=== PATIENT | female | born 1955 | race Caucasian/White ===

== ENCOUNTER 2018-03-28 20:16 | Observation (INO) ==
[2018-03-28] MEDS ORDERED: Sod Chloride 0.9% Inj 1,000 ML IV.SIG ONE (20:32)
--- NOTE | 2018-03-28 20:33 | ED ---
HPI General Chief complaint: Dizziness Stated complaint: cold symp Time Seen by Provider: 03/28/18 20:25 Source: patient Mode of arrival: wheelchair Limitations: no limitations History of Present Illness HPI narrative: 62-year-old female with history of hypertension, gastric bypass, presents emergency department for evaluation of acute onset nausea and vomiting 1 and half hours prior to arrival. Patient thought initially it was because she had had cereal with sugar. This sometimes does cause her stomach to be upset but typically resolves after she vomits. She states it did not and she has vomited several times. She denies any chest pain. Patient states she feels weak. She is diaphoretic. She denies any cardiac history. She states she has otherwise been well. Related Data Home Medications Medication Instructions Recorded Confirmed Bariatric Procare Vitamin 1 tab PO DAILY NEB 03/28/18 03/28/18 Multi Vitamin 1 tab PO DAILY 03/28/18 03/28/18 benazepril-hydrochlorothiazide 1 tab PO DAILY 03/28/18 03/29/18 bupropion HCl [Wellbutrin SR] 150 mg PO BID 03/28/18 03/28/18 clonazepam 1 tab PO BID 03/28/18 03/28/18 Previous Rx's Medication Instructions Recorded potassium chloride 20 meq PO BID #14 tab 03/29/18 Allergies Allergy/AdvReac Type Severity Reaction Status Date / Time Sulfa (Sulfonamide Allergy Intermediate Itching, Verified 03/28/18 22:10 Antibiotics) Generalized doxycycline Allergy Dizziness Verified 03/28/18 22:09 morphine Allergy Itching, Verified 03/28/18 20:25 Generalized Review of Systems ROS: all other systems reviewed are negative PMFSH History History Provided By: Patient Medical History Medical History Anxiety (Acute) Depression (Acute) HTN (hypertension) (Acute) Hx of hysterectomy (Acute) Surgical History Surgical History Hx of LASIK (Acute) Hx of gastric bypass (Acute) Social History Social History Substance History: No History of Abuse Second Hand Smoke Exposure: No Smoking Status: Former smoker Tobacco Type: Cigarettes How Often Do You Have a Drink Containing Alcohol: 2 to 3 times a week Recent Travel in [facility] within the Last 8 Weeks: No Recent Out of Country Travel within the Last 8 Weeks: No Exam Narrative Exam Narrative: GENERAL: Well-nourished female patient, appears as though she does not feel well, in no acute distress. SKIN: Focused skin assessment. Cool and clammy, diaphoretic HEAD: Atraumatic. Normocephalic. EYES: Pupils equal and round. No scleral icterus. No injection or drainage. ENT: No nasal bleeding or discharge. Mucous membranes pink and moist. NECK: Trachea midline. No JVD. CARDIOVASCULAR: Regular rate and rhythm. No murmur appreciated. RESPIRATORY: No accessory muscle use. Clear to auscultation. Breath sounds equal bilaterally. GASTROINTESTINAL: Abdomen soft, non-tender, nondistended. No guarding. No rebound tenderness. Hepatic and splenic margins not palpable. MUSCULOSKELETAL: No obvious deformities. No clubbing. No cyanosis. No edema. NEUROLOGICAL: Awake and alert. No obvious cranial nerve deficits. Motor grossly within normal limits. Normal speech. PSYCHIATRIC: Appropriate mood and affect; insight and judgment normal. Course Initial Documented Vital Signs Temperature 97.9 F 03/28/18 20:21 Pulse Rate 85 03/28/18 20:21 Respiratory Rate 20 03/28/18 20:21 Blood Pressure 124/71 03/28/18 20:21 Pulse Oximetry 100 03/28/18 20:21 Last Documented Vital Signs Temperature 97.5 F L 03/29/18 08:00 Pulse Rate 73 03/29/18 09:12 Respiratory Rate 22 03/29/18 08:00 Blood Pressure 155/76 H 03/29/18 09:15 Pulse Oximetry 100 03/29/18 08:00 Medical Decision Making OSBALDO Attestation OSBALDO supervised visit: Yes Attestation: I, Dr. Rivera, have reviewed the advance practice practitioner's documentation and am in agreement, met with the patient face to face, made the diagnosis, and the medical decision making was done by me. The patient was initially evaluated by Kellie, the [employer]. Please see their complete history and physical. *My assessment and Findings: The patient presents with nausea, vomiting, midepigastric pain, diaphoresis that began after eating. She reports a history of gastric bypass with similar symptoms in the past, however it usually resolves quickly, this persisted thus prompting her to go to the emergency department. The patient denies any prior history of coronary artery disease. During the course of the patient's emergency department visit, the patient's history, examination, and differential diagnosis were reviewed with the patient. The patient was placed on a alarm security or surveillance monitor with oximetry and frequent blood pressure monitoring. The patient had IV access obtained and blood work sent for analysis. The patient's studies were reviewed and remarkable for a white count of 6.3, platelets 255, monocytosis at 9.5, hemoglobin 13.6, PT PTT unremarkable, chemistry reveals a troponin I of <0.02, sodium is 130, lipase is 60. Urinalysis shows small occult blood few mucus, culture not indicated RBCs 1 on high-powered field. Chest x-ray shows no acute abnormality. Given the patient's symptoms and comorbid risk factors for coronary artery disease, the patient was agreeable with the plan to proceed with admission to the chest pain center for rule out serial cardiac enzyme protocol followed by consideration of stress testing. The patient's results were discussed with the patient, including the plan of care. I explained that further testing and/ or monitoring is indicated based on the patient's history, examination, and/ or laboratory findings. Therefore, I recommended admission for additional evaluation. The patient expressed understanding and was agreeable with this plan. The patient was admitted to the hospital in stable condition and sent to a bed under the care of the [facility] Narrative Medical decision making narrative: C2-year-old female presents emergency department for evaluation. Patient appears initially so she does not feel well. She is nauseous. She is vomiting. She is given Zofran. Initial blood glucose is 61. Patient is able to tolerate p.o. Lab work is reviewed and without acute concern. Troponin is less than 0.02. EKG is reviewed by my attending upon reassessment, patient does appear better. She tells me that she feels much better and would like to go home. I discussed with my attending physician. Because these are symptoms not consistent with her previous episodes of hypoglycemia or eating sugary cereal, we both agree it is in her best interest to be admitted observation with chest pain center to rule out any possible cardiac etiology. I have explained this again to the patient and she is in agreement with this plan of care. Lab Data Result diagrams: 03/28/18 20:45 03/29/18 03:18 Lab Results 03/28/18 03/28/18 03/28/18 Range/Units 20:45 20:45 20:45 WBC 6.3 (4.0-11.0) th/mm3 RBC 4.32 (4.00-5.30) mil/mm3 Hgb 13.6 (11.6-15.3) gm/dL Hct 38.2 (35.0-46.0) % MCV 88.3 (80.0-100.0) fL MCH 31.4 (27.0-34.0) pg MCHC 35.5 (32.0-36.0) % RDW 13.3 (11.6-17.2) % Plt Count 255 (150-450) th/mm3 MPV 8.1 (7.0-11.0) fL Neut % (Auto) 55.5 (16.0-70.0) % Lymph % (Auto) 32.3 (9.0-44.0) % Dolores % (Auto) 9.9 H (0.0-8.0) % Eos % (Auto) 1.8 (0.0-4.0) % Baso % (Auto) 0.5 (0.0-2.0) % Neut # (Auto) 3.5 (1.8-7.7) th/mm3 Lymph # (Auto) 2.0 (1.0-4.8) th/mm3 Dolores # (Auto) 0.6 (0.0-0.9) th/mm3 Eos # (Auto) 0.1 (0.0-0.4) th/mm3 Baso # (Auto) 0.0 (0.0-0.2) th/mm3 WBC Differential . Differential Comment Auto diff final PT 9.8 (9.8-11.6) sec INR 1.0 Ratio APTT 26.5 (24.3-30.1) sec Sodium (136-145) meq/L Potassium (3.5-5.1) meq/L Chloride (98-107) meq/L Carbon Dioxide (21.0-32.0) meq/L Anion Gap (5-15) meq/L BUN (7-18) mg/dL Creatinine (0.50-1.00) mg/dL Estimated GFR (>89) mL/min POC Glucose (68-110) mg/dl Random Glucose (74-106) mg/dL Calcium (8.5-10.1) mg/dL Total Bilirubin (0.2-1.0) mg/dL AST (15-37) U/L ALT (10-53) U/L Alkaline Phosphatase (45-117) U/L Total Creatine Kinase (26-192) U/L Troponin I (0.02-0.05) ng/mL Total Protein (6.4-8.2) g/dL Albumin (3.4-5.0) g/dL Lipase (73-393) U/L Urine Color (Yellw/Straw) Urine Clarity (Clear) Urine pH (5.0-8.5) Ur Specific Cary (1.002-1.035) Urine Protein (Neg-Trace) mg/dL Urine Glucose (UA) (Negative) mg/dL Urine Ketones (Negative) mg/dL Urine Occult Blood (Negative) Urine Nitrate (Negative) Urine Bilirubin (Negative) Urine Urobilinogen (Less than 2) mg/dL Ur Leukocyte Esterase (Negative) Urine RBC (0-3) /hpf Urine Mucus (Occasional) /lpf Micro UA Comment Urine Culture Comments Serum Alcohol 49 H (0-5) mg/dL 03/28/18 03/28/18 03/28/18 Range/Units 20:45 20:58 22:03 WBC (4.0-11.0) th/mm3 RBC (4.00-5.30) mil/mm3 Hgb (11.6-15.3) gm/dL Hct (35.0-46.0) % MCV (80.0-100.0) fL MCH (27.0-34.0) pg MCHC (32.0-36.0) % RDW (11.6-17.2) % Plt Count (150-450) th/mm3 MPV (7.0-11.0) fL Neut % (Auto) (16.0-70.0) % Lymph % (Auto) (9.0-44.0) % Dolores % (Auto) (0.0-8.0) % Eos % (Auto) (0.0-4.0) % Baso % (Auto) (0.0-2.0) % Neut # (Auto) (1.8-7.7) th/mm3 Lymph # (Auto) (1.0-4.8) th/mm3 Dolores # (Auto) (0.0-0.9) th/mm3 Eos # (Auto) (0.0-0.4) th/mm3 Baso # (Auto) (0.0-0.2) th/mm3 WBC Differential Differential Comment PT (9.8-11.6) sec INR Ratio APTT (24.3-30.1) sec Sodium 130 L (136-145) meq/L Potassium 2.7 L* (3.5-5.1) meq/L Chloride 92 L (98-107) meq/L Carbon Dioxide 26.2 (21.0-32.0) meq/L Anion Gap 12 (5-15) meq/L BUN 11 (7-18) mg/dL Creatinine 0.67 (0.50-1.00) mg/dL Estimated GFR 89 (>89) mL/min POC Glucose 61 L 101 (68-110) mg/dl Random Glucose 54 L (74-106) mg/dL Calcium 8.8 (8.5-10.1) mg/dL Total Bilirubin 0.3 (0.2-1.0) mg/dL AST 25 (15-37) U/L ALT 25 (10-53) U/L Alkaline Phosphatase 91 (45-117) U/L Total Creatine Kinase 80 (26-192) U/L Troponin I Less than 0.02 L (0.02-0.05) ng/mL Total Protein 6.7 (6.4-8.2) g/dL Albumin 4.0 (3.4-5.0) g/dL Lipase 60 L (73-393) U/L Urine Color (Yellw/Straw) Urine Clarity (Clear) Urine pH (5.0-8.5) Ur Specific Cary (1.002-1.035) Urine Protein (Neg-Trace) mg/dL Urine Glucose (UA) (Negative) mg/dL Urine Ketones (Negative) mg/dL Urine Occult Blood (Negative) Urine Nitrate (Negative) Urine Bilirubin (Negative) Urine Urobilinogen (Less than 2) mg/dL Ur Leukocyte Esterase (Negative) Urine RBC (0-3) /hpf Urine Mucus (Occasional) /lpf Micro UA Comment Urine Culture Comments Serum Alcohol (0-5) mg/dL 03/28/18 03/29/18 03/29/18 Range/Units 22:10 00:30 03:18 WBC (4.0-11.0) th/mm3 RBC (4.00-5.30) mil/mm3 Hgb (11.6-15.3) gm/dL Hct (35.0-46.0) % MCV (80.0-100.0) fL MCH (27.0-34.0) pg MCHC (32.0-36.0) % RDW (11.6-17.2) % Plt Count (150-450) th/mm3 MPV (7.0-11.0) fL Neut % (Auto) (16.0-70.0) % Lymph % (Auto) (9.0-44.0) % Dolores % (Auto) (0.0-8.0) % Eos % (Auto) (0.0-4.0) % Baso % (Auto) (0.0-2.0) % Neut # (Auto) (1.8-7.7) th/mm3 Lymph # (Auto) (1.0-4.8) th/mm3 Dolores # (Auto) (0.0-0.9) th/mm3 Eos # (Auto) (0.0-0.4) th/mm3 Baso # (Auto) (0.0-0.2) th/mm3 WBC Differential Differential Comment PT (9.8-11.6) sec INR Ratio APTT (24.3-30.1) sec Sodium (136-145) meq/L Potassium (3.5-5.1) meq/L Chloride (98-107) meq/L Carbon Dioxide (21.0-32.0) meq/L Anion Gap (5-15) meq/L BUN (7-18) mg/dL Creatinine (0.50-1.00) mg/dL Estimated GFR (>89) mL/min POC Glucose (68-110) mg/dl Random Glucose (74-106) mg/dL Calcium (8.5-10.1) mg/dL Total Bilirubin (0.2-1.0) mg/dL AST (15-37) U/L ALT (10-53) U/L Alkaline Phosphatase (45-117) U/L Total Creatine Kinase 67 64 (26-192) U/L Troponin I Less than 0.02 L Less than 0.02 L (0.02-0.05) ng/mL Total Protein (6.4-8.2) g/dL Albumin (3.4-5.0) g/dL Lipase (73-393) U/L Urine Color Straw (Yellw/Straw) Urine Clarity Clear (Clear) Urine pH 7.0 (5.0-8.5) Ur Specific Cary 1.005 (1.002-1.035) Urine Protein Negative (Neg-Trace) mg/dL Urine Glucose (UA) Negative (Negative) mg/dL Urine Ketones Negative (Negative) mg/dL Urine Occult Blood Small H (Negative) Urine Nitrate Negative (Negative) Urine Bilirubin Negative (Negative) Urine Urobilinogen Less than 2 (Less than 2) mg/dL Ur Leukocyte Esterase Negative (Negative) Urine RBC 1 (0-3) /hpf Urine Mucus Few H (Occasional) /lpf Micro UA Comment Culture not ind Urine Culture Comments Culture not ind Serum Alcohol (0-5) mg/dL 03/29/18 Range/Units 03:18 WBC (4.0-11.0) th/mm3 RBC (4.00-5.30) mil/mm3 Hgb (11.6-15.3) gm/dL Hct (35.0-46.0) % MCV (80.0-100.0) fL MCH (27.0-34.0) pg MCHC (32.0-36.0) % RDW (11.6-17.2) % Plt Count (150-450) th/mm3 MPV (7.0-11.0) fL Neut % (Auto) (16.0-70.0) % Lymph % (Auto) (9.0-44.0) % Dolores % (Auto) (0.0-8.0) % Eos % (Auto) (0.0-4.0) % Baso % (Auto) (0.0-2.0) % Neut # (Auto) (1.8-7.7) th/mm3 Lymph # (Auto) (1.0-4.8) th/mm3 Dolores # (Auto) (0.0-0.9) th/mm3 Eos # (Auto) (0.0-0.4) th/mm3 Baso # (Auto) (0.0-0.2) th/mm3 WBC Differential Differential Comment PT (9.8-11.6) sec INR Ratio APTT (24.3-30.1) sec Sodium 134 L (136-145) meq/L Potassium 4.3 D (3.5-5.1) meq/L Chloride 100 D (98-107) meq/L Carbon Dioxide 24.1 (21.0-32.0) meq/L Anion Gap 10 (5-15) meq/L BUN 9 (7-18) mg/dL Creatinine 0.50 (0.50-1.00) mg/dL Estimated GFR Greater than 89 (>89) mL/min POC Glucose (68-110) mg/dl Random Glucose 102 (74-106) mg/dL Calcium 8.6 (8.5-10.1) mg/dL Total Bilirubin 0.3 (0.2-1.0) mg/dL AST 18 (15-37) U/L ALT 23 (10-53) U/L Alkaline Phosphatase 67 (45-117) U/L Total Creatine Kinase (26-192) U/L Troponin I (0.02-0.05) ng/mL Total Protein 6.2 L (6.4-8.2) g/dL Albumin 3.9 (3.4-5.0) g/dL Lipase (73-393) U/L Urine Color (Yellw/Straw) Urine Clarity (Clear) Urine pH (5.0-8.5) Ur Specific Cary (1.002-1.035) Urine Protein (Neg-Trace) mg/dL Urine Glucose (UA) (Negative) mg/dL Urine Ketones (Negative) mg/dL Urine Occult Blood (Negative) Urine Nitrate (Negative) Urine Bilirubin (Negative) Urine Urobilinogen (Less than 2) mg/dL Ur Leukocyte Esterase (Negative) Urine RBC (0-3) /hpf Urine Mucus (Occasional) /lpf Micro UA Comment Urine Culture Comments Serum Alcohol (0-5) mg/dL Imaging Data Radiologist's impression: Chest X-Ray 03/28/18 20:31 CONCLUSION: Negative examination. Discharge Plan Discharge Disposition Patient Disposition: 30 Still Patient Discharge Condition Condition: Stable Discharge Order Discharge Orders: Discharge Order (Routine); Ordered 03/29/18 Ordered By: Susan Stewart Discharge Details Anticipated Discharge Date: 03/29/18 Diagnosis: Atypical chest pain, Hypoglycemia, Nausea & vomiting Physicians Team ED Provider: Veena Rivera ED Midlevel Provider: Winsome Guzman Primary Care Provider: Ericka De Leon Attending Provider: Donato Irwin Other Providers: [facility],Insurance Status ED Status: Left Department Discharge Information Discharge Date/Time: 03/29/18 00:15
--- NOTE | 2018-03-28 21:16 | XR ---
EXAM DATE: 03/28/2018 9:13 PM EDT AGE/SEX: 62 years / Female INDICATIONS: Chest pain and nausea CLINICAL DATA: This is the patient's initial encounter. Patient reports that signs and symptoms have been present for 1 day and indicates a pain score of 8/10. MEDICAL/SURGICAL HISTORY: None. None. COMPARISON: No prior exams available for comparison. FINDINGS: A single AP view of the chest demonstrates the lungs to be symmetrically aerated without evidence of mass, infiltrate or effusion. The cardiomediastinal contours are unremarkable. Osseous structures a re intact. CONCLUSION: Negative examination. Electronically signed by: Odin Clemente MD 03/28/2018 9:15 PM EDT
[2018-03-28 21:41] LABS: Baso % (Auto) 0.5 % (0.0-2.0); Eos # (Auto) 0.1 th/mm3 (0.0-0.4); Eos % (Auto) 1.8 % (0.0-4.0); Hematocrit 38.2 % (35.0-46.0); Hemoglobin 13.6 gm/dL (11.6-15.3); Lymph % (Auto) 32.3 % (9.0-44.0); Mean Corpuscular HGB Conc 35.5 % (32.0-36.0); Mean Corpuscular Hemoglobin 31.4 pg (27.0-34.0); Mean Corpuscular Volume 88.3 fL (80.0-100.0); Mean Platelet Volume 8.1 fL (7.0-11.0); Mono # (Auto) 0.6 th/mm3 (0.0-0.9); Mono % (Auto) 9.9 % (0.0-8.0); Neut # (Auto) 3.5 th/mm3 (1.8-7.7); Neut % (Auto) 55.5 % (16.0-70.0); Platelet Count 255 th/mm3 (150-450); Red Blood Count 4.32 mil/mm3 (4.00-5.30); Red Cell Distribution Width 13.3 % (11.6-17.2); White Blood Count 6.3 th/mm3 (4.0-11.0)
[2018-03-28 21:47] LABS: Activated Partial Thrombo Time 26.5 sec (24.3-30.1); Prothrombin Time 9.8 sec (9.8-11.6)
[2018-03-28 21:52] LABS: Alanine Aminotransferase 25 U/L (10-53); Anion Gap 12 meq/L (5-15); Aspartate Aminotransferase 25 U/L (15-37); Blood Urea Nitrogen 11 mg/dL (7-18); Calcium 8.8 mg/dL (8.5-10.1); Carbon Dioxide 26.2 meq/L (21.0-32.0); Chloride 92 meq/L (98-107); Glomerular Filtration Rate 89 mL/min (>89); Glucose,Random 54 mg/dL (74-106); Lipase 60 U/L (73-393); Sodium 130 meq/L (136-145)
[2018-03-28 22:20] LABS: Alkaline Phosphatase 91 U/L (45-117); Total Protein 6.7 g/dL (6.4-8.2)
[2018-03-28 22:21] LABS: Creatine Kinase 80 U/L (26-192); Potassium 2.7 meq/L (3.5-5.1)
[2018-03-28 22:28] LABS: Bilirubin,Urine Negative (Negative); Clarity,Urine Clear (Clear); Color,Urine Straw (Yellw/Straw); Glucose,Urine (UA) Negative (Negative); Leukocyte Esterase,Urine Negative (Negative); Mucus,Urine Few /lpf (Occasional); Nitrite,Urine Negative (Negative); Specific Gravity,Urine 1.005 (1.002-1.035)
[2018-03-28] MEDS ORDERED: Acetaminophen 500 MG Tablet PO PRN (22:56)
[2018-03-29 01:10] LABS: Creatine Kinase 67 U/L (26-192)
[2018-03-29 03:59] LABS: Creatine Kinase 64 U/L (26-192)
--- NOTE | 2018-03-29 07:44 | P.HPCA ---
History of Present Illness Primary Care Physician: Ericka De Leon MD, R2 Chief Complaint: Nausea and vomiting History of Present Illness: 62 year old female with history of hypertension and gastric bypass presents emergency room for further evaluation of nausea and vomiting. Onset last evening after eating a bolus cereal with sugar. States she is unable to tolerate sugar and when she eats sugar often violently ill with nausea and vomiting, often resolving within an hour. Discomfort did not resolve and she became weak, dizzy, diaphoretic, and "shaky." No chest pain or dyspnea. States symptoms resolved shortly after arriving to ER. No relieving factors. Denies cardiac history, diabetes, or hyperlipidemia. Family history noncontributory for early onset cardiovascular disease. No recent illness, fever, or injury. - Diagnosis (1) Nausea & vomiting (2) Hypokalemia (3) Hypertension Review of Systems All other systems reviewed negative except as stated in HPI PMFSH - History History Provided By: Patient - Medical History Medical History: Medical History (Last Reviewed 03/29/18 @ 09:15 by LINNEA Webster) Anxiety Depression HTN (hypertension) Hx of hysterectomy - Surgical History Surgical History: Surgical History (Last Reviewed 03/29/18 @ 09:15 by LINNEA Webster) Hx of LASIK Hx of gastric bypass - Tobacco History Second Hand Smoke Exposure: No Tobacco Use In Past 30 Days: No Smoking Status: Former smoker Tobacco Type: Cigarettes - Alcohol History How Often Do You Have a Drink Containing Alcohol: 2 to 3 times a week - Substance Use History Substance History: No History of Abuse - Travel History Recent Travel in the [place] Within the Last 8 Weeks: No Recent Travel Out of the Country Within the Last 8 Weeks: No - Immunization History Tetanus Immunization: >5 Years Hx Influenza Vaccine This Season: No Medications and Allergies Active Medications: Active Medications Acetaminophen (Tylenol) 500 mg PO Q4H PRN PRN Reason: HEADACHE Nitroglycerin (Nitrostat Sl) 0.4 mg SL Q5M PRN PRN Reason: CHEST PAIN Sodium Chloride (Ns Flush) 2 ml IV.FLUSH UNSCH PRN PRN Reason: FLUSH AFTER USING IV ACCESS Last Admin: 03/28/18 20:45 Dose: 2 ml Sodium Chloride (Ns Flush) 2 ml IV.FLUSH BID MASOOD Sodium Chloride (Ns Flush) 2 ml IV.FLUSH PRN PRN PRN Reason: FLUSH AFTER USING IV ACCESS Allergies Allergy/AdvReac Type Severity Reaction Status Date / Time Sulfa (Sulfonamide Allergy Intermediate Itching, Verified 03/28/18 22:10 Antibiotics) Generalized doxycycline Allergy Dizziness Verified 03/28/18 22:09 morphine Allergy Itching, Verified 03/28/18 20:25 Generalized Home Medications Medication Instructions Recorded Confirmed Type Bariatric Procare Vitamin 1 tab PO DAILY NEB 03/28/18 03/28/18 History Multi Vitamin 1 tab PO DAILY 03/28/18 03/28/18 History benazepril-hydrochlorothiazide 1 tab PO DAILY 03/28/18 03/29/18 History bupropion HCl [Wellbutrin SR] 150 mg PO BID 03/28/18 03/28/18 History clonazepam 1 tab PO BID 03/28/18 03/28/18 History Exam Vital signs: Vital Signs 03/28/18 20:21 03/28/18 20:59 03/28/18 22:06 Temperature 97.9 F Pulse Rate 85 86 84 Respiratory Rate 20 14 16 Blood Pressure 124/71 177/77 H 183/84 H Pulse Oximetry 100 99 99 03/28/18 23:00 03/29/18 00:33 03/29/18 03:09 Temperature Pulse Rate 81 77 75 Respiratory Rate 16 16 Blood Pressure 155/77 H 118/59 L Pulse Oximetry 100 98 03/29/18 04:08 Temperature Pulse Rate 72 Respiratory Rate Blood Pressure Pulse Oximetry Intake & Output 03/28/18 03/29/18 03/29/18 18:59 06:59 18:59 Intake Total 1000 / 1000 Balance 1000 / 1000 Weight 73 kg Intake: IV 1000 / 1000 NS Inj 1,000 ML @ Wide Open IV. 1000 / 1000 SIG BOLUS ONE Rx#:[id number] Oral 0 / 0 Other: # Voids 1 Date of Last Bowel Movement 03/28/18 Narrative: GENERAL: Alert WN, WD, NAD, pleasant, female HEAD: NC, AT EYES: Sclera clear, conjunctiva without injection, pupils equal and round ENT: Mucous membranes pink and moist, no nasal discharge or bleeding NECK: Supple, no masses, trachea midline CV: RRR, 2/6 mitral regurg murmur, no rub or gallop. RESP: Clear lungs throughout bilateral, no crackles, wheeze, rhonchi, symmetrical chest rise, nonlabored, able to speak in full sentences ABD: Soft, NT, ND, no masses, positive bowel tones EXT: Pulses +2x4, no dependent edema MS: Normal tone x4 extremities, nontender, no obvious deformities, full range of motion NEURO: CN II through CN XII grossly intact, motor strength 5/5 PSYCH: A+O x3, pleasant affect, appropriate speech, mood, insight and judgment SKIN: Normal turgor, normal texture, no lesions, no rashes, brisk cap refill, even hair distribution Results 03/28/18 20:45 03/29/18 03:18 Cardiac Enzymes 03/28/18 03/29/18 03/29/18 Range/Units 20:45 00:30 03:18 AST 25 (15-37) U/L Troponin I Less than 0.02 L Less than 0.02 L Less than 0.02 L (0.02-0.05) ng/mL Coagulation 03/28/18 Range/Units 20:45 PT 9.8 (9.8-11.6) sec APTT 26.5 (24.3-30.1) sec CBC 03/28/18 Range/Units 20:45 WBC 6.3 (4.0-11.0) th/mm3 RBC 4.32 (4.00-5.30) mil/mm3 Hgb 13.6 (11.6-15.3) gm/dL Hct 38.2 (35.0-46.0) % Plt Count 255 (150-450) th/mm3 Neut # (Auto) 3.5 (1.8-7.7) th/mm3 Lymph # (Auto) 2.0 (1.0-4.8) th/mm3 Kaufman # (Auto) 0.6 (0.0-0.9) th/mm3 Eos # (Auto) 0.1 (0.0-0.4) th/mm3 Baso # (Auto) 0.0 (0.0-0.2) th/mm3 Comprehensive Metabolic Panel 03/28/18 Range/Units 20:45 Sodium 130 L (136-145) meq/L Potassium 2.7 L* (3.5-5.1) meq/L Chloride 92 L (98-107) meq/L Carbon Dioxide 26.2 (21.0-32.0) meq/L BUN 11 (7-18) mg/dL Creatinine 0.67 (0.50-1.00) mg/dL Calcium 8.8 (8.5-10.1) mg/dL AST 25 (15-37) U/L ALT 25 (10-53) U/L Alkaline Phosphatase 91 (45-117) U/L Total Protein 6.7 (6.4-8.2) g/dL Albumin 4.0 (3.4-5.0) g/dL Intake and Output 03/28/18 03/29/18 03/29/18 22:59 06:59 14:59 Intake Total 1000 / 1000 0 / 0 Balance 1000 / 1000 0 / 0 Intake: IV 1000 / 1000 NS Inj 1,000 ML @ Wide Open IV. 1000 / 1000 SIG BOLUS ONE Rx#:[id number] Oral 0 / 0 Other: # Voids 1 Date of Last Bowel Movement 03/28/18 Weight 73 kg EKG interpretations - EKG EKG results cardiology: sinus rhythm, normal axis, normal QRS, normal ST/T Caprini VTE Risk Assessment Caprini VTE Risk Assessment: Moderate/High Risk (score >= 2) Caprini Risk Assessment Model: Point Value = 1 Point Value = 2 Point Value = 3 Point Value = 5 Age 41-60 Minor surgery BMI > 25 kg/m2 Swollen legs Varicose veins or History of unexplained or recurrent spontaneous Oral contraceptives or hormone replacement Sepsis (< 1 month) Serious lung disease, including pneumonia (< 1 month) Abnormal pulmonary function Acute myocardial infarction Congestive heart failure (< 1 month) History of inflammatory bowel disease Medical patient at bed rest Age 61-74 Arthroscopic surgery Major open surgery (> 45 min) Laparoscopic surgery (> 45 min) Malignancy Confined to bed (> 72 hours) Immobilizing plaster cast Central venous access Age >= 75 History of VTE Family history of VTE Factor V Leiden Prothrombin [id number] Lupus anticoagulant Anticardiolipin antibodies Elevated serum homocysteine Heparin-induced thrombocytopenia Other congenital or acquired thrombophilia Stroke (< 1 month) Elective arthroplasty Hip, pelvis, or leg fracture Acute spinal cord injury (< 1 month) Prophylaxis Regimen: Total Risk Factor Score Risk Level Prophylaxis Regimen 0-1 Low Early ambulation 2 Moderate Order ONE of the following: *Sequential Compression Device (SCD) *Heparin 5000 units SQ BID 3-4 Higher Order ONE of the following medications: *Heparin 5000 units SQ TID *Enoxaparin/Lovenox 40 mg SQ daily (WT < 150 kg, CrCl > 30 mL/min) *Enoxaparin/Lovenox 30 mg SQ daily (WT < 150 kg, CrCl > 10-29 mL/min) *Enoxaparin/Lovenox 30 mg SQ BID (WT < 150 kg, CrCl > 30 mL/min) AND/OR *Sequential Compression Device (SCD) 5 or more Highest Order ONE of the following medications: *Heparin 5000 units SQ TID (Preferred with Epidurals) *Enoxaparin/Lovenox 40 mg SQ daily (WT < 150 kg, CrCl > 30 mL/min) *Enoxaparin/Lovenox 30 mg SQ daily (WT < 150 kg, CrCl > 10-29 mL/min) *Enoxaparin/Lovenox 30 mg SQ BID (WT < 150 kg, CrCl > 30 mL/min) AND *Sequential Compression Device (SCD) Assessment and Plan - Assessment (1) Nausea & vomiting Code(s): R11.2 - Nausea with vomiting, unspecified Status: Resolved Plan: Admitted to chest pain center. ACS ruled out with 3 sets of EKGs and cardiac enzymes. Seen and evaluated by Dr. Shane Esteban. Symptoms resolved. Requesting to go home. No further cardiac testing. Discharge this morning, instructed to follow-up with primary care provider in one week. (2) Hypokalemia Code(s): E87.6 - Hypokalemia Status: Acute Plan: Potassium 2.7. 40 mEq given in ER. Prescription will be provided upon discharge potassium 20 mg twice daily 1 week. Instructed to follow-up with primary care provider, rechecking potassium level next week. Discuss with PCP regarding HCTZ in antihypertensive medication as possible factor in low potassium level. (3) Hypertension Code(s): I10 - Essential (primary) hypertension Status: Chronic Plan: Lisinopril 20 mg 1 dose now. Follow up with primary care provider. Verbalized understanding and agreeable to plan of care. H&P: Quality - VTE Deep Vein Thrombosis/Pulmonary Embolism Present on Admission: No (1) Nausea & vomiting Qualifiers: Vomiting Intractability: unspecified (3) Hypertension Qualifiers: Hypertension type: unspecified Qualified Code(s): I10 - Essential (primary) hypertension
[2018-03-29 07:57] LABS: Alanine Aminotransferase 23 U/L (10-53); Albumin 3.9 g/dL (3.4-5.0); Alkaline Phosphatase 67 U/L (45-117); Anion Gap 10 meq/L (5-15); Aspartate Aminotransferase 18 U/L (15-37); Blood Urea Nitrogen 9 mg/dL (7-18); Calcium 8.6 mg/dL (8.5-10.1); Carbon Dioxide 24.1 meq/L (21.0-32.0); Chloride 100 meq/L (98-107); Glomerular Filtration Rate Greater Than 89 mL/min (>89); Glucose,Random 102 mg/dL (74-106); Potassium 4.3 meq/L (3.5-5.1); Sodium 134 meq/L (136-145); Total Protein 6.2 g/dL (6.4-8.2)
[2018-03-29 08:09] VITALS: RESP 22; TEMP 97.5; O2SAT 100
[2018-03-29] MEDS ORDERED: buPROPion 150 MG 12 HR Tablet PO SCH (09:00)
[2018-03-29] MEDS ORDERED: Lisinopril 20 MG Tablet PO SCH (09:00)
[2018-03-29] MEDS ORDERED: clonazePAM 1 MG Tablet PO SCH (09:00)
[2018-03-29 09:13] VITALS: PULSE 73
[2018-03-29 09:15] VITALS: BP 155/76
--- NOTE | 2018-03-29 13:39 | ECG ---
Date Performed: 03/29/2018 Time Performed: 03:14:07 PTAGE: 62 years EKG: Sinus rhythm NORMAL ECG PREVIOUS TRACING : 03/29/2018 00.10 Since previous tracing, no significant change noted DOCTOR: Shane Esteban Interpretating Date/Time 03/29/2018 13:38:10
--- NOTE | 2018-03-29 13:40 | ECG ---
Date Performed: 03/29/2018 Time Performed: 00:10:15 PTAGE: 62 years EKG: Sinus rhythm NORMAL ECG PREVIOUS TRACING : 03/28/2018 20.33 Since previous tracing, no significant change noted DOCTOR: Shane Esteban Interpretating Date/Time 03/29/2018 13:38:30
--- NOTE | 2018-03-29 13:40 | ECG ---
Date Performed: 03/28/2018 Time Performed: 20:33:37 PTAGE: 62 years EKG: Sinus rhythm POSSIBLE LEFT ATRIAL ENLARGEMENT BORDERLINE ECG NO PREVIOUS TRACING DOCTOR: Shane Esteban Interpretating Date/Time 03/29/2018 13:38:50
== END 2018-03-29 09:43 | disposition home or self-care (01) ==
LOC: NEPE 20:16 → NEDA 20:16 → NEPGCP 20:16
PROVIDERS: ADMIT Internal Medicine Interventional Cardiology; ATTEND Internal Medicine Interventional Cardiology
DX: E87.6 Hypokalemia; I10 Essential (primary) hypertension; F17.210 Nicotine dependence, cigarettes, uncomplicated; R11.2 Nausea with vomiting, unspecified; E16.2 Hypoglycemia, unspecified; R94.31 Abnormal electrocardiogram [ECG] [EKG]; Z88.5 Allergy status to narcotic agent; F32.9 Major depressive disorder, single episode, unspecified; Z98.84 Bariatric surgery status; Z90.710 Acquired absence of both cervix and uterus; F41.9 Anxiety disorder, unspecified; Z88.2 Allergy status to sulfonamides; Z79.899 Other long term (current) drug therapy; R07.89 Other chest pain